=== PATIENT | female | born 1995 | race African-American/Black ===

== ENCOUNTER 2018-04-13 22:20 | Emergency (ER) | payer OTHER ==
[2018-04-13] MEDS: LIDOCAINE 1%/EPI 1:100,000 20 ML VIAL. INJ (23:41)
[2018-04-13] MEDS: DIPHTH,PERTUSS(ACELL),TET TOX 0.5 ML DISP.SYRIN. VAX IM (23:42)
[2018-04-14] MEDS: NEOMY/BACITR/POLYMYXIN OINT PACKET. TP (00:54)
== END 2018-04-14 00:58 | disposition home or self-care (01) ==
LOC: ER 04-14 00:58
DX: S51.021A Laceration with foreign body of right elbow, initial encounter (principal); W22.8XXA Striking against or struck by other objects, initial encounter; Y93.89 Activity, other specified; Y99.8 Other external cause status; Y92.89 Other specified places as the place of occurrence of the external cause
CPT/HCPCS: 73070; 73080; 90471; 90715; 96372; 99284-25; J3490

== ENCOUNTER 2018-04-18 14:51 | Day surgery (SDC) | payer OTHER ==
[~2018-04-18 14:51] MED LIST: DEXAMETHASONE SOD PHOS 20 MG/5 ML VIAL.; FAMOTIDINE 20 MG/2 ML VIAL; LIDOCAINE 2% PF Vial for OR 5 ML VIAL.; ONDANSETRON PF 4 MG/2 ML VIAL.; PROPOFOL 20 ML IV
[2018-04-18 15:34] LABS: NEG OBC UR NEG; POS OBC UR POS; U PREG PATIENT NEGATIVE (NEG)
[2018-04-18] MEDS ORDERED: fentaNYL PF VIAL 100 MCG/2 ML VIAL ×2 (15:39→18:10)
[2018-04-18] MEDS ORDERED: MIDAZOLAM HCL/PF 2 MG/2 ML VIAL. (15:39)
[2018-04-18] MEDS ORDERED: ONDANSETRON PF 4 MG/2 ML VIAL. IV (15:45)
[2018-04-18] MEDS ORDERED: fentaNYL PF VIAL 100 MCG/2 ML VIAL IV (15:45)
[2018-04-18] MEDS ORDERED: MORPHINE SULFATE 2 MG/ML DISP.SYRIN. IV (15:45)
[2018-04-18] MEDS ORDERED: PROCHLORPERAZINE 10 MG/2 ML VIAL. IV (15:45)
[2018-04-18] MEDS: IV RINGERS,LACTATED 1000ML 1,000 ML IV (15:53)
[2018-04-18] MEDS: LIDOCAINE 1% PF 2 ML VIAL. ID (17:43)
[2018-04-18] MEDS: fentaNYL PF VIAL 100 MCG/2 ML VIAL IV ×2 (18:13→18:28)
[2018-04-18] MEDS: HYDROcodone/APAP 5/325MG 1 TAB TABLET PO (18:31)
== END 2018-04-18 19:10 | disposition home or self-care (01) ==
LOC: SURG 14:51
DX: S50.851A Superficial foreign body of right forearm, initial encounter (principal); X58.XXXA Exposure to other specified factors, initial encounter; Y93.89 Activity, other specified; Y92.89 Other specified places as the place of occurrence of the external cause; Y99.8 Other external cause status; F32.9 Major depressive disorder, single episode, unspecified; F41.9 Anxiety disorder, unspecified; Z72.89 Other problems related to lifestyle; Z79.899 Other long term (current) drug therapy
CPT/HCPCS: 10120; 81025; 87071; 87075; A7015; J0690; J1100; J2001; J2250; J2405; J2704; J3010; S0028